=== PATIENT | female | born 1965 | race American Indian/Alaskan Native ===

== ENCOUNTER 2018-11-03 13:38 | Emergency (ER) | payer OTHER ==
[~2018-11-03] VITALS: Ht 157.5 cm; Wt 68.0 kg
[2018-11-03 14:08] LABS: URINE BILIRUBIN NEGATIVE (Negative); URINE BLOOD NEGATIVE (Negative); URINE CLARITY CLEAR; URINE COLOR YELLOW; URINE GLUCOSE-RANDOM NEGATIVE (Negative); URINE KETONES NEGATIVE (Negative); URINE LEUKOCYTES-REFLEX NEGATIVE (Negative); URINE NITRITE-REFLEX NEGATIVE (Negative); URINE PROTEIN NEGATIVE (Negative); URINE UROBILINOGEN 0.2 E.U./dl (0.2-1.0)
[2018-11-03] MEDS ORDERED: METFORMIN HCL500 MG PO (14:16)
[2018-11-03] MEDS ORDERED: ASPIR 8181 MG PO (14:17)
[2018-11-03 14:21] LABS: ABSOLUTE BASOPHILS 0.1 thou/uL (0.0-0.2); ABSOLUTE EOSINOPHILS 0.1 thou/uL (0.0-0.7); ABSOLUTE LYMPHOCYTES 2.2 thou/uL (0.8-5.3); ABSOLUTE MONOCYTES 0.5 thou/uL (0.0-1.2); ABSOLUTE NEUTROPHILS 4.1 thou/uL (1.6-8.1); BASOPHILS 0.8 %; EOSINOPHILS 1.6 %; HEMOGLOBIN 13.8 gm/dL (12.0-15.0); LYMPHOCYTES 31.8 %; MCH 30.5 pg (26.0-34.0); MCHC 33.5 g/dL (28.0-37.0); MONOCYTES 6.7 %; NUCLEATED RBCS 0 /100WBC; PLATELET COUNT* 331 thou/uL (150-400); POLYS 59.1 %; RBC 4.51 mil/uL (4.20-5.00); RDW-CV 13.6 % (10.5-14.5)
[2018-11-03 14:38] LABS: ALBUMIN 4.1 g/dL (3.4-5.0); ALKALINE PHOSPHATASE 128 U/L (46-116); AMYLASE 33 U/L (25-115); ANION GAP 8 mmol/L (7-16); BUN 12 mg/dL (7-18); CALCIUM 9.7 mg/dL (8.5-10.1); CHLORIDE 103 mmol/L (98-107); CO2 28 mmol/L (21-32); CREATININE 0.8 mg/dL (0.6-1.3); GLUCOSE 108 mg/dL (70-99); LIPASE 126 U/L (73-393); POTASSIUM 4.1 mmol/L (3.5-5.1); SGOT 24 U/L (15-37); SGPT 26 U/L (30-65); SODIUM 139 mmol/L (136-145); TOTAL BILIRUBIN 0.3 mg/dL (<0.1-1.0); TOTAL PROTEIN 8.3 g/dL (6.4-8.2); TROPONIN-I LEVEL <0.06 ng/mL (<0.06)
[2018-11-03 18:12] VITALS: BP 127/82
--- NOTE | 2018-11-04 16:00 | EKG ---
[place] [address] ELECTROCARDIOGRAM REPORT Name: LEILANI ISLAS Room: 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 : 1965 Requested By: Nehemiah Olivarez Order Number: [id number] MD: Rosendo Butcher Measurements Intervals Sylvester Rate: 71 P: 50 SC: 115 QRS: -31 QRSD: 141 T: 68 QT: 438 QTc: 476 Interpretive Statements Sinus rhythm Borderline short SC interval Right bundle branch block LVH with secondary repolarization abnormality No previous ECG available for comparison Electronically Signed On 11-04-2018 16:00:43 [employer] by Rosendo Butcher [email or web address] <ELECTRONICALLY SIGNED> By: Rosendo Butcher MD, [facility] 11/04/18 1600 1430 1430 Rosendo Butcher MD, FACC /EPI
== END 2018-11-03 18:18 | disposition short-term general hospital (02) ==
LOC: M.ERS 13:38
PROVIDERS: Nurse Practitioner Psychiatric/Mental Health
DX: N83.9 Noninflammatory disorder of ovary, fallopian tube and broad ligament, unspecified (principal); F17.200 Nicotine dependence, unspecified, uncomplicated; Z88.5 Allergy status to narcotic agent